=== PATIENT | male | born 1960 | race Caucasian/White ===

== ENCOUNTER 2017-02-18 12:10 | Emergency (ER) | payer OTHER ==
[~2017-02-18] VITALS: Ht 167.6 cm; Wt 82.5 kg
[2017-02-18 12:13] VITALS: Ht 167.6 cm; Wt 82.5 kg
[2017-02-18] MEDS ORDERED: ONDANSETRON (ODT) 4 MG TAB ODT STA (12:37)
--- NOTE | 2017-02-18 14:04 | ERD ---
ER Documentation Chief Complaint Date/Time DATE: 02/18/17 TIME: 13:54 Chief Complaint FEELING DIZZY , SLEEPY , NAUSEA AFTER TAKING PAIN MED FOR HIS SHOULDER PAIN HPI 56 year old male presenting to the emergency department complaining of feeling drowsy, nauseous, and sleepy after he took ibuprofen 800mg tablet an hour and half ago. Patient is brought in by son. Patient states that he was certain that it was 800mg ibuprofen however it was in an old bottle of of omeprazole. Patient denies fever. ROS All systems reviewed and are negative except as per history of present illness. Allergies Allergies: Coded Allergies: No Known Allergy (Unverified , 02/18/17) PMhx/Soc Medical and Surgical Hx: pt denies Surgical Hx History of Surgery: No Anesthesia Reaction: No Hx Neurological Disorder: No Hx Respiratory Disorders: Yes (ASTHMA) Hx Cardiac Disorders: No Hx Psychiatric Problems: No Hx Miscellaneous Medical Probl: Yes (GERD) Hx Alcohol Use: No Hx Substance Use: No Hx Tobacco Use: No Smoking Status: Never smoker Physical Exam Vitals Vital Signs Date Time Temp Pulse Resp B/P Pulse Ox O2 Delivery O2 Flow Rate FiO2 02/18/17 15:28 98.3 75 19 148/89 98 Room Air 02/18/17 12:13 98.2 100 18 122/66 98 Physical Exam GENERAL: well-developed/well-nourished, in no apparent distress, non-toxic appearing HENT: NC/AT, bilateral tympanic membrane is normal with good cone of light, nares patent, oropharynx clear without exudates EYES: Conjunctiva normal, PERRLA, EOMI, no nystagmus noted NECK: Supple, no lymphadenopathy PULM: CTA bilaterally, no rales, rhonchi, or wheezing heard CV: Normal S1S2, RRR, good capillary refill GI: Soft, non-distended, normal bowel sounds, non-tender BACK: No midline tenderness, no masses EXT: No clubbing, cyanosis, or edema NEURO: Alert and orientated to person, place, and time. CN II-IIX intact. Gait and coordination were normal. 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 limits SKIN: Intact, normal turgor Psych: Drowsy Results 24 hrs Laboratory Tests Test 02/18/17 13:15 Urine Opiates Screen NEGATIVE Urine Barbiturates NEGATIVE Urine Amphetamines Screen NEGATIVE Urine Benzodiazepines Screen NEGATIVE Urine Cocaine Screen NEGATIVE Urine Cannabinoids NEGATIVE Current Medications Medications (Trade) Dose Ordered Sig/Chrissie Route PRN Reason Start Time Stop Time Status Last Admin Dose Admin Ondansetron HCl (Zofran Odt) 4 mg ONCE STAT ODT 02/18/17 12:37 02/18/17 12:39 DC 02/18/17 12:45 Procedures/MDM 56 year old male presenting to the emergency department complaining of feeling drowsy, nauseous, and sleepy after he took ibuprofen 800mg tablet an hour and half ago. On examination patient appears to be drowsy. He showed the pill bottle and it was a bottle of omeprazole however the medications and side were different shapes informs. Patient states that he took an ibuprofen 800 mg but due to patient's symptoms is likely the patient took another medication. Zofran was given for nausea patient improved in symptoms. A urine drug tox screen did not show any evidence of opiate usage however tramadol will not show up. I have observed patient for 3 hours and he had significant improvement in symptoms and he stable for discharge. Patient states that he wants to go home now. Patient is neurovascularly and hematemesis stable for discharge. Discussed to follow-up with a primary care physician. I discussed importance of taking medications safely. He understands and agrees with plan Departure Diagnosis: Primary Impression: Adverse drug effect Condition: Stable ANNA JAMES PA-C Feb 18, 2017 14:04
[2017-02-18 14:05] LABS: BARBITURATES NEGATIVE (NEGATIVE); BENZODIAZEPINES NEGATIVE (NEGATIVE); CANNABINOIDS NEGATIVE (NEGATIVE); COCAINE NEGATIVE (NEGATIVE)
[2017-02-18 14:17] LABS: OPIATES NEGATIVE (NEGATIVE)
[2017-02-18 15:28] VITALS: BP 148/89; PULSE 75; RESP 19; TEMP 98.3
== END 2017-02-18 15:29 | disposition home or self-care (01) ==
LOC: FTE 12:10
DX: R42 Dizziness and giddiness (principal); T39.315A Adverse effect of propionic acid derivatives, initial encounter; R11.0 Nausea; J45.909 Unspecified asthma, uncomplicated
CPT/HCPCS: 80307; Z7502; Z7610; 99283